=== PATIENT | female | born 2000 | race American Indian/Alaskan Native ===

== ENCOUNTER 2019-11-21 09:22 | Day surgery (SDC) | payer SELFPAY ==
--- NOTE | 2019-11-21 12:08 | Emergency Department Report ---
HPI - General Chief Complaint: Dyspnea/Respdistress Time Seen by Provider: 11/21/19 11:44 - HPI HPI: 19-year-old -[place] female presents to the emergency department with complaint of abdominal pain and shortness of breath. The abdominal pain is been going on for the past 3 days. It is a cramping pain. She had some improvement yesterday but it came back this morning even more intense. It is associated with some nausea and vomiting. She denies any dysuria, vaginal bleeding but says there is some mild vaginal discharge the past few days. Regarding the shortness of breath, the patient denies any chest pain, wheezing, coughing, fever. She has not taken anything for any of her symptoms prior to arrival. No past medical history. No recent travel, recent immobility, recent surgery, lower extremity swelling. She denies any tobacco or illicit drug use. ED Past Medical Hx - Past Medical History Previous Medical History?: No - Surgical History Past Surgical History?: No ED Review of Systems ROS: Stated complaint: SOB Other details as noted in HPI Comment: All other systems reviewed and negative Constitutional: denies: chills, fever Eyes: denies: eye pain, vision change ENT: denies: ear pain, throat pain Respiratory: shortness of breath. denies: cough, wheezing Cardiovascular: denies: chest pain, edema Gastrointestinal: abdominal pain, nausea. denies: vomiting Genitourinary: discharge. denies: dysuria Musculoskeletal: denies: back pain, arthralgia Skin: denies: rash, lesions Neurological: denies: headache, weakness Physical Exam - Physical Exam Vital Signs: Vital Signs 11/21/19 09:31 Temperature 97.3 F L Pulse Rate 107 H Respiratory 16 Rate Blood Pressure 133/80 O2 Sat by Pulse 100 Oximetry Physical Exam: GENERAL: The patient is well-developed well-nourished. HEENT: Normocephalic. Atraumatic. Patient has moist mucous membranes. EYES: Extraocular motions are intact. NECK: Supple. Trachea is midline. CHEST/LUNGS: Clear to auscultation. No tachypnea or accessory muscle use. No cough heard during examination. There is no respiratory distress noted. HEART/CARDIOVASCULAR: Regular. There is no tachycardia. There is no murmur. ABDOMEN: Abdomen is soft. Mild generalized abdominal tenderness to palpation. No guarding. Patient has normal bowel sounds. There is no abdominal distention. SKIN:Skin is warm and dry. . NEURO: The patient is awake, alert, and oriented. The patient is cooperative. The patient has no focal neurologic deficits. Normal speech. MUSCULOSKELETAL: There is no tenderness or deformity. There is no evidence of acute injury. ED Course Vital Signs 11/21/19 09:31 Temperature 97.3 F L Pulse Rate 107 H Respiratory 16 Rate Blood Pressure 133/80 O2 Sat by Pulse 100 Oximetry - Consultations Consultation #1: After seeing the results of the transvaginal/pelvic ultrasound, along with the positive test and beta hCG of about 2100, I contacted the [employer] conveyor monitor, Dr. Bartholomew. He listened to the case presentation including lab and imaging results and is coming into the emergency department to see the patient. Dr Bartholomew has alluded to the fact that he may take the patient to the operating room this evening. 11/21/19 14:59 ED Medical Decision Making - Lab Data Result diagrams: 11/21/19 12:07 11/21/19 12:07 - Radiology Data Radiology results: report reviewed ULTRASOUND OB LESS THAN 14 WEEKS FETUS ULTRASOUND OB TRANSVAGINAL HISTORY: Abdominal pain during . TECHNIQUE: Transabdominal and transvaginal imaging with color Doppler interrogation. FINDINGS: The uterus measures 9.6 x 2.9 x 4.8 cm. No uterine mass is detected. The endometrial stripe is homogeneous and measures 13 mm in thickness. No convincing intrauterine is demonstrated. There is a complex partially cystic masslike lesion in the right adnexa measuring up to 8.4 cm. No obvious pole or heart rate in this area. The left ovary measures 3.4 x 2.5 x 2.5 cm and contains a 1.9 cm cyst. Small to medium pelvic fluid is noted. IMPRESSION: No intrauterine is appreciated at this time. Complex partially cystic masslike lesion in the right adnexa is identified. Small to medium free pelvic fluid. Please note that a right ectopic cannot be excluded in this patient. Close interval follow-up is recommended. Signer Name: Domenic Alejo Jr, MD - Medical Decision Making This patient presents to the emergency department with complaint of a three-day history of abdominal pain and 1 day history of some shortness of breath. The patient's lungs are clear to auscultation and heart sounds are normal. She does not have any signs of any respiratory or acute distress. As part of her workup she was found to be with a quantitative test. The patient was then sent for a transvaginal/obstetrical ultrasound came back showing a large right-sided adnexal mass with small to moderate pelvic fluid. There were no signs of any intrauterine . Therefore there is concern that this cystic-like adnexal mass could be ectopic versus other. I spoke with the [employer] on-call who reviewed the labs, images and came in to do a physical examination and he has decided to take the patient to the operating room for exploratory l aparoscopy. The patient has been updated throughout her ED course regarding lab and imaging results, [employer] consultation and possible surgical intervention. Her labs have been unremarkable. Vital signs have been stable throughout her ED course. - Differential Diagnosis , ectopic , malignancy, hemorrhagic cyst Critical Care Time: Yes Critical care time in (mins) excluding proc time.: 35 Critical care attestation.: If time is entered above; I have spent that time in minutes in the direct care of this critically ill patient, excluding procedure time. Critical care time wa s spent on this patient and doing her initial evaluation, multiple re- evaluations, ordering and interpretation of labs and imaging, discussion with the [employer], multiple discussions with the patient and her family. Critical Care Time: 35 minutes ED Disposition Clinical Impression: Adnexal mass Pelvic pain affecting Qualifiers: Trimester: unspecified trimester Qualified Code(s): O26.899 - Other specified related conditions, unspecified trimester; R10.2 - Pelvic and perineal pain Disposition: OP ADMIT IP TO THIS HOSP Is pt being admited?: Yes Condition: Serious Referrals: PRIMARY CARE, [Primary Care Provider] - 3-5 Days Time of Disposition: 16:33
[2019-11-21 12:29] LABS: Hemoglobin 12.2 gm/dl (10.1-14.3); Mean Corpuscular HGB Conc 31 % (30-34); Mean Corpuscular Volume 72 fl (79-97); Platelet Count 306 K/mm3 (140-440); Red Blood Count 5.44 M/mm3 (3.65-5.03); Red Cell Distribution Width 14.8 % (13.2-15.2)
[2019-11-21 12:48] LABS: Alanine Aminotransferase 12 units/L (7-56); Albumin 4.7 g/dL (3.9-5); BUN/Creatinine Ratio 24; Blood Urea Nitrogen 12 mg/dL (7-17); Calcium 9.8 mg/dL (8.4-10.2); Hemolysis Index 7
[2019-11-21 14:16] LABS: Anisocytosis 1+; Basophils % (Manual) 0 % (0.0-1.8); Eosinophils % (Manual) 0 % (0.0-4.3); Hypochromasia 1+; Ovalocytes Few; Platelet Estimate Consistent w Auto; Poikilocytosis 1+; Total Cells Counted 100
--- NOTE | 2019-11-21 14:33 | Ultrasound Report ---
ULTRASOUND OB LESS THAN 14 WEEKS FETUS ULTRASOUND OB TRANSVAGINAL HISTORY: Abdominal pain during . TECHNIQUE: Transabdominal and transvaginal imaging with color Doppler interrogation. FINDINGS: The uterus measures 9.6 x 2.9 x 4.8 cm. No uterine mass is detected. The endometrial stripe is homoge neous and measures 13 mm in thickness. No convincing intrauterine is demonstrated. There is a complex partially cystic masslike lesion in the right adnexa measuring up to 8.4 cm. No ob vious pole or heart rate in this area. The left ovary measures 3.4 x 2.5 x 2.5 cm and contains a 1.9 cm cyst. Small to medium pelvic fluid is noted. IMPRESSION: No intrauterine is appreciated at this time. Complex partially cystic masslike lesion in the right adnexa is identified. Small to medium free pelv ic fluid. Please note that a right ectopic cannot be excluded in this patient. Close interv al follow-up is recommended. Signer Name: Domenic Alejo Jr, MD Signed: 11/21/2019 2:29 PM Workstation Name: [id number]
--- NOTE | 2019-11-21 15:23 | Anesthesia Day of Surgery ---
Anesthesia Day of Surgery - Day of Surgery Patient Examined: Yes Patient H&P Reviewed: Yes Patient is NPO: Yes
--- NOTE | 2019-11-21 15:24 | Anesthesia Consultation ---
Anesthesia Consult and Med Hx Date of service: 11/21/19 - Airway Anesthetic Teeth Evaluation: Good ROM Head & Neck: Adequate Mental/Hyoid Distance: Adequate Mallampati Class: Class I Intubation Access Assessment: Good - Pre-Operative Health Status ASA Pre-Surgery Classification: ASA1, Emergency Proposed Anesthetic Plan: General - Pulmonary Hx Smoking: No - Hematic Hx Sickle Cell Disease: No
[2019-11-21] MEDS ORDERED: ROCURONIUM 50 MG/5 ML INJ IV ONE (15:31)
[2019-11-21] MEDS ORDERED: fentaNYL 100 MCG/2 ML INJ ONE (15:31)
[2019-11-21] MEDS ORDERED: propofoL 200 MG/20 ML VIAL IV ONE (15:31)
[2019-11-21] MEDS ORDERED: LIDOCAINE MPF (2%) 20 MG/1 ML VIAL 5 ML ONE (15:31)
[2019-11-21] MEDS ORDERED: MIDAZOLAM 2 MG/2 ML INJ ONE (15:31)
[2019-11-21] MEDS ORDERED: ONDANSETRON 4 MG/2 ML INJ ONE (15:40)
[2019-11-21] MEDS ORDERED: KETOROLAC 30 MG/1 ML INJ ONE (15:40)
[2019-11-21] MEDS ORDERED: dexAMETHasone 20 MG/5 ML VIAL ONE (15:40)
[2019-11-21] MEDS ORDERED: METOCLOPRAMIDE 10 MG/2 ML INJ ONE (15:40)
[2019-11-21] MEDS ORDERED: BUPIVACAINE/PF (0.5%) 5 MG/1 ML 30 ML VIAL INFILTRATI ONE ×2 (15:47→17:34)
--- NOTE | 2019-11-21 16:22 | History and Physical Report ---
History of Present Illness Date of examination: 11/21/19 Date of admission: 11/21/2019 Chief complaint: Worsening abdominal pains x 3days. History of present illness: Worsening abdominal pains x 3days. ER evaluation discovered a state, empty uterus, suspicious rt adnexal mass and moderate free peritoneal fluid today. Past History Past Medical History: no pertinent history Past Surgical History: no surgical history - Obstetrical History : 1 Para: 0 Medications and Allergies Allergies Allergy/AdvReac Type Severity Reaction Status Date / Time No Known Allergies Allergy Unverified 08/03/14 07:13 Review of Systems All systems: negative - Vital Signs Vital signs: Vital Signs Temp Pulse Resp BP Pulse Ox 97.3 F L 107 H 16 133/80 100 11/21/19 09:31 11/21/19 09:31 11/21/19 09:31 11/21/19 09:31 11/21/19 09:31 Temp Pulse Resp BP Pulse Ox 97.6 F 102 H 16 129/76 97 11/21/19 15:00 11/21/19 15:00 11/21/19 15:00 11/21/19 15:00 11/21/19 15:00 - Physical Exam Lungs: Positive: Normal air movement Abdomen: Positive: tenderness Results Result Diagrams: 11/21/19 12:07 11/21/19 12:07 Abnormal lab results 11/21/19 11/21/19 11/21/19 Range/Units 12:07 12:07 14:16 WBC 13.9 H (4.5-11.0) K/mm3 RBC 5.44 H (3.65-5.03) M/mm3 MCV 72 L (79-97) fl MCH 22 L (28-32) pg Seg Neuts % (Manual) 92.0 H (40.0-70.0) % Lymphocytes % (Manual) 6.0 L (13.4-35.0) % Seg Neutrophils # Man 12.8 H (1.8-7.7) K/mm3 Lymphocytes # (Manual) 0.8 L (1.2-5.4) K/mm3 Sodium 135 L (137-145) mmol/L Carbon Dioxide 21 L (22-30) mmol/L Creatinine 0.5 L (0.7-1.2) mg/dL Glucose 107 H (65-100) mg/dL Total Protein 8.4 H (6.3-8.2) g/dL HCG, Quant 2089 H (0-4) mIU/mL All other labs normal. Ultrasound: report reviewed Assessment and Plan - Patient Problems (1) Pelvic pain affecting Current Visit: Yes Status: Acute (2) Adnexal mass Current Visit: Yes Status: Acute Plan to address problem: The possibility of an ectopic was discussed fully with patient as well as the need for surgical exploration and treatment. All risks were disclosed and her questions were answered. She gave her consent for surgery. The plan is for exploratory laparoscopy.
[2019-11-21] MEDS ORDERED: ceFAZolin/Water 2 GM/20 ML 2 GM/20 ML SYRINGE IV ONE (16:23)
[2019-11-21] MEDS ORDERED: LACTATED RINGERS 1,000 ML ONE (16:33)
[2019-11-21] MEDS ORDERED: KETAMINE/STERILE WATER 50 MG/ML SYRINGE ONE (16:45)
[2019-11-21] MEDS ORDERED: ESMOLOL 100 MG/10 ML INJ IV ONE (16:50)
[2019-11-21] MEDS ORDERED: SODIUM CHLORIDE 0.9% IRRIG SOLN 2000 ML IR ONE (17:35)
[2019-11-21] MEDS ORDERED: SODIUM CHLORIDE 0.9% IRR 1,500 ML BOTTLE IR ONE (17:35)
[2019-11-21] MEDS ORDERED: GLYCOPYRROLATE 0.4 MG/2 ML INJ ONE (17:45)
[2019-11-21] MEDS ORDERED: NEOSTIGMINE 10MG/10 ML INJ MDV ONE (17:45)
[2019-11-21] MEDS ORDERED: HYDROmorphone 1 MG/1 ML INJ IV PRN (17:59)
[2019-11-21] MEDS ORDERED: ONDANSETRON 4 MG/2 ML INJ IV PRN (17:59)
--- NOTE | 2019-11-21 18:29 | Operative Report ---
Operative Report Operative Report: Date of surgery: November 21, 2019 Pre Op Diagnosi: Positive test, suspicious adnexal mass, abdominal and pelvic pain, free peritoneal fluid on ultrasonography Post Op Diagnosis: Same. Plus right ovarian cyst and hemoperitoneum. Procedures: Exploratory laparoscopy. Surgeon: Manuel Arana MD Raisin Washer surgeon: Benita Tripathi MD Anesthesiologist: MD Jacquelin Hostess Cashier: Geena Donnelly Anesthesia: GA EBL: 5cc or less. Complications: None Findings: There was a 50 cc to 100 cc hemoperitoneum. The uterus was of normal size and grossly normal. Careful examination of the fallopian tubes revealed no gross abnormalities. The right fallopian tube was more floppy and was presumed to have aborted and ampullary ectopic into the peritoneal cavity. There was no other source of bleeding seen within the entire peritoneal cavity. The bowels, the liver, the inferior aspect of the diaphragm as well as the omentum were all grossly normal. There was a 9 cm x 5 cm unilocular cystic swelling of the right ovary. The distending fluid within this cyst was serous. Procedure in details: The patient was taken to the operating room, she was placed in the straight supine position and given general anesthesia. Patient was then put in the lithotomy position and prepped in the vulva vagina and abdomen. The drapes were placed. A timeout was done. With the go ahead from the short order cook, a bimanual examination of the pelvis was done. An indwelling Keating catheter was placed. The Sargis tenaculum was used to stabilize the anterior lip of the cervix. At the navel, a subumbilical stab incision was placed. The Veress needle was inserted into the peritoneal cavity, making sure to point the tip of this instrument into the free hollow of the pelvis. The Veress needle was initially aspirated and no blood was drawn. The Veress needle was then flushed through with a small quantity of sterile normal saline without any resistance. The general peritoneal cavity was thereafter insufflated with 2 L of carbon dioxide. The Veress needle was removed and through the same stab incision a 5 mm trocar was inserted into the peritoneal cavity and again making sure to point the tip of this instrument into the free hollow of the pelvis. The laparoscope was inserted and confirmed successful access to the peritoneal cavity. Under vision through the laparoscope, 2 additional ports were placed, one 5 and another - a 10mm, one for each flank. The general peritoneal cavity was examined. The findings have been reported above. The patient was then put in the Trendelenburg position. The hemoperitoneum was aspirated and amounted to likely 100 cc. The surgical monsalve were irrigated with sterile normal saline and no active bleeding was observed. The patient was returned to the straight supine position and the injected fluid was then aspirated. An endoscopic needle was passed and used to aspirate the right ovarian cyst. The serous fluid was sent for cytology. The decision to collapse the cyst was removed it as a potential source of pelvic pain. Procedure was terminated. All instruments were withdrawn from the peritoneal cavity. 2 stab incisions were sealed with Dermabond. The incision that carried the 10 mm port was closed with 2-0 Vicryl. Hemostasis at the 3 ports were excellent. The vagina and instruments were withdrawn. All sponges and instruments were accounted for. The Keating catheter was removed. There were no complications. The estimated blood loss from the surgical intervention was less than 5 mL. The patient tolerated the procedure well and was transferred to the recovery room in very good condition.
[2019-11-21] MEDS ORDERED: ACETAMINOPHEN 325 MG TAB PO PRN (18:30)
[2019-11-21] MEDS ORDERED: HYDROcodone/ACETAMINOPHEN 5-325 MG TAB PO PRN (18:30)
[2019-11-21 20:57] VITALS: BP 132/82
== END 2019-11-21 18:49 | disposition home or self-care (01) ==
LOC: ED 09:22 → OR 18:48
PROVIDERS: ATTEND Obstetrics & Gynecology
DX: R10.9 Unspecified abdominal pain (principal); R10.2 Pelvic and perineal pain; N83.201 Unspecified ovarian cyst, right side; N94.89 Other specified conditions associated with female genital organs and menstrual cycle
CPT/HCPCS: 36415; 49322; 76801; 76817; 80053; 83690; 84702; 84703; 85007; 85025; 86850; 86900; 86901; 88112; A4217; J0690; J1100; J1170; J1885; J2250; J2405; J2704; J2710; J2765; J3010; J7120